=== PATIENT | female | born 1970 | race Caucasian/White ===

== ENCOUNTER → 2022-08-21 10:50 | Outpatient (BNVA) | payer SELFPAY | PROVIDERS: PCP Registered Nurse; Referring Provider Registered Nurse; Visit Provider Dermatology | DX: D48.9 Neoplasm of uncertain behavior, unspecified (principal); Z85.820 Personal history of malignant melanoma of skin; Z85.828 Personal history of other malignant neoplasm of skin; D22.9 Melanocytic nevi, unspecified | CPT/HCPCS: 88305 ==

== ENCOUNTER → 2022-09-04 09:48 | Outpatient (BNVA) | payer SELFPAY | PROVIDERS: PCP Registered Nurse; Visit Provider Registered Nurse | DX: Z13.6 Encounter for screening for cardiovascular disorders (principal) | CPT/HCPCS: 80061; 82947; 83036 ==

== ENCOUNTER → 2022-10-05 10:23 | Outpatient (BNVA) | payer SELFPAY | PROVIDERS: PCP Registered Nurse; Visit Provider Registered Nurse | DX: Z01.419 Encounter for gynecological examination (general) (routine) without abnormal findings (principal); N63.10 Unspecified lump in the right breast, unspecified quadrant; Z12.11 Encounter for screening for malignant neoplasm of colon; Z71.85 Encounter for immunization safety counseling; Z71.3 Dietary counseling and surveillance | CPT/HCPCS: 87070; 87205; 87624 ==

== ENCOUNTER 2022-10-22 10:08 | Outpatient (CLI) | payer SELFPAY ==
--- NOTE | 2022-10-22 10:19 | US_ITS ---
WS: [id number] Exam: US breast BI limited* [id number] Date/Time of Exam: 10/22/2022 10:19 AM Reason For Exam: SHARAD BREAST NODULES Regional ultrasound of the right breast is performed at the 9:00 position. A lobulated hypoechoic solid nodule is noted at the 9:00 position 3 cm from the nipple. This measures 1.17 x 0.6 x 0.47 cm. This corresponds to the nodule identified on today's diagnostic mammogram. The re were no other ultrasound abnormalities within this region. Regional ultrasound of the upper outer quadrant and also the 9:00 position of the left breast was per formed. At the 9:00 position there is a suspicious 0.53 x 0.75 x 0.42 cm lobulated irregular hypoecho ic nodule. The previously described 4 mm nodule seen on mammography in the upper outer quadrant of th e left breast was not definitely seen with ultrasound. US/US breast BI limited* [id number] IMPRESSION: 1. 1.17 x 0.6 x 0.47 cm solid hypoechoic bilobulated nodule in the anterior 9:0 0 position in the right breast. This is an indeterminate lesion and should be b iopsied. 2. Sonographically suspicious 0.53 x 0.75 x 0.42 cm irregular lobulated hypoech oic nodule at the 9:00 position in the left breast that should be biopsied. 3. The previously described suspicious 4 millimeter nodule in the upper outer q uadrant of the left breast could not be localized with ultrasound. This has fly picious mammographic appearance and should also be biopsied.
--- NOTE | 2022-10-22 10:19 | MM_ITS ---
WS: [id number] VIEWS: MLO, CC, and ML views both breasts. 3D digital tomosynthesis is also included in this exam. S pot compression views with tomography also obtained of both breasts in the MLO and CC projections. No comparison exams. Findings: In the right breast there is a bilobulated 1.5 x 0.8 cm nodule identified at the 9:00 position at ant erior depth. This lesion is smoothly marginated. No other significant finding in the right breast. In the left breast there is a 0.8 x 0.5 cm irregular nodule at the 9:00 position in the anterior left b reast. Additionally there is a 4 mm irregular nodular density in the upper outer quadrant of the left breast. No architectural distortion or suspicious calcification in either breast. Bilateral regional breast ultrasound of each lesion would be indicated for further workup of this patient.Scattered fib roglandular densities MM/[place] [id number] Impression: BI-RADS: 0-Incomplete: Need additional imaging evaluation FOLLOW-UP: See Report This mammogram was also analyzed by the Computer Aided Detection System R2 Imag e Sail Finisher Machine.
== END 2022-10-22 10:09 | disposition home or self-care (01) ==
PROVIDERS: PCP Registered Nurse; Visit Provider Registered Nurse
DX: N63.15 Unspecified lump in the right breast, overlapping quadrants (principal); N63.25 Unspecified lump in the left breast, overlapping quadrants
CPT/HCPCS: 76642; 77062; G0279

== ENCOUNTER 2022-11-16 07:42 | Day surgery (SDC) | payer SELFPAY ==
[2022-11-14 10:11] VITALS: BMI 28.1
[2022-11-16 08:08] VITALS: BP 132/85; PULSE 74; RESP 18; TEMP 36.1; O2SAT 94
[2022-11-16] MEDS: sodium chloride 0.9% 1,000 ML 30 ML IV (08:40)
--- NOTE | 2022-11-16 08:44 | P.ANESASSM_ITS ---
Pre-Anesthetic Assessment Height/Weight: Height 1.7 m Weight 81.647 kg Temp Pulse Resp BP Pulse Ox O2 Del Method 97 F L 74 18 132/85 94 Room Air 11/16/22 08:08 11/16/22 08:08 11/16/22 08:08 11/16/22 08:08 11/16/22 08:08 11/16/22 08:08 Operation Date: 11/16/22 09:30 [place] Procedures [place] [id number] screening colonoscopy Z12.11(Not Applicable) - Javi Stewart DO Familial anesthetic complications: mother has hard time waking up Was Beta Alan taken within 24 hours: N/A Was Clonidine taken within 24 hours: N/A Last intake: Intake Last Liquid Date 11/16/22 Last Liquid Time 04:00 Last Solid Date 11/14/22 Last Solid Time 22:00 Social Tobacco and No alcohol Exam alert, oriented x 3, clear to auscultation bilaterally and regular rate & rhythm Airway Mallampati: Class II Dentition: other (missing) Musc/skel malignant melanoma, BCC Anesthetic Plan ASA status: 2 Anesthesia: MAC Risk of > 500 ml blood loss (7ml/kg in children): No Medications/Allergies Home Medications Medication Instructions Recorded Confirmed Last Taken Type aspirin 500 mg-acetaminophen 325 ea PO 11/14/22 Unknown History mg-caffeine 65 mg oral powder pack vismodegib 150 mg capsule 150 mg PO DAILY 11/14/22 11/14/22 11/15/22 History (Erivedge) Allergies Allergy/AdvReac Type Severity Reaction Status Date / Time Morpholine Analogues Allergy Unknown Unknown Verified 11/14/22 10:07 codeine Allergy unk Verified 11/14/22 10:07 [facility] Anesthesia Medical History History of basal cell carcinoma History of malignant melanoma Hypokalemia Surgical History History of tubal ligation Family History Grandfather Cancer paternal skin Father Hypertension Denies family history of Diabetes CAD (coronary artery disease) Chronic kidney disease (CKD) Lung disease Stroke Social History Smoking and tobacco status: current every day smoker cigarettes Packs smoked per day: 1.5 Alcohol intake: never Substance/Drug Use: never Adopted: No Caregiver/support person: No Lives independently: No Household members: significant other service: No Current occupational status: unemployed Sexually active: Yes Current gender identity: Female Data Anesthesia Cardiac Studies: No Data to Display
--- NOTE | 2022-11-16 10:01 | PM.HP ---
Providers/Chief Complaint Primary Care Provider: CHRISTINE Blanton History of Present Illness Tiny Escobedo is a 52 year old female here for her first screening colonoscopy. She denies any family history of colon cancer, abdominal pain, nausea, emesis, diarrhea, constipation, hematochezia and/or melena. Medications/Allergies Home Medications Medication Instructions Recorded Confirmed Last Taken Type aspirin 500 mg-acetaminophen 325 ea PO 11/14/22 Unknown History mg-caffeine 65 mg oral powder pack vismodegib 150 mg capsule 150 mg PO DAILY 11/14/22 11/14/22 11/15/22 History (Erivedge) Allergies Allergy/AdvReac Type Severity Reaction Status Date / Time Morpholine Analogues Allergy Unknown Unknown Verified 11/14/22 10:07 codeine Allergy unk Verified 11/14/22 10:07 PFSH Acute PFSH: Medical History History of basal cell carcinoma History of malignant melanoma Hypokalemia Surgical History History of tubal ligation Family History Grandfather Cancer paternal skin Father Hypertension Denies family history of Diabetes CAD (coronary artery disease) Chronic kidney disease (CKD) Lung disease Stroke Social History Smoking and tobacco status: current every day smoker cigarettes Packs smoked per day: 1.5 Alcohol intake: never Substance/Drug Use: never Adopted: No Caregiver/support person: No Lives independently: No Household members: significant other service: No Current occupational status: unemployed Sexually active: Yes Do you think of yourself as: Straight/Heterosexual Current gender identity: Female Vitals/I&O/Wt Last Vital Signs Temp 97 F L 11/16/22 08:08 Pulse 74 11/16/22 08:08 Resp 18 11/16/22 08:08 BP 132/85 11/16/22 08:08 Pulse Ox 94 11/16/22 08:08 O2 Del Method Room Air 11/16/22 08:08 Weight last 48 hrs Weight 180 lb A&P Assessment and plan (1) Colon cancer screening: Plan Colonoscopy The risks and benefits of the procedure, including bleeding, infection, intestinal perforation requiring surgery, missed lesion were explained to the patient. The patient is understanding of the risks and wishes to proceed. Attestations Medical Necessity Statement*: Home Coding Level of Care Code Acute Code for Chg Fwd Diagnoses Colon cancer screening Z12.11
[2022-11-16 10:15] VITALS: BP 114/81; PULSE 81; RESP 16; TEMP 36.2; O2SAT 93
[2022-11-16 10:29] VITALS: BP 108/72; PULSE 79; RESP 17; O2SAT 97
--- NOTE | 2022-11-16 13:04 | ANE.PACU2 ---
Inpatient post-anesthesia follow up: Airway intact: Yes Vital signs: Temperature 97.2 F Pulse Rate 79 Respiratory Rate 17 Blood Pressure 108/72 Pulse Oximetry 97 Oxygen Delivery Me thod Room Air Oxygen Flow Rate Fraction of Inspir ed Oxygen Hydration adequate: Yes Nausea and vomiting: No Pain level: 1 Mental status: Baseline
== END 2022-11-16 10:40 | disposition home or self-care (01) ==
PROVIDERS: PCP Registered Nurse; Visit Provider Surgery
PROC: 0DJD8ZZ Inspection of Lower Intestinal Tract, Via Natural or Artificial Opening Endoscopic (ICD-10-PCS; CPT 45378; principal; 2022-11-16 09:30)
DX: Z12.11 Encounter for screening for malignant neoplasm of colon (principal); Z79.52 Long term (current) use of systemic steroids; F17.210 Nicotine dependence, cigarettes, uncomplicated; Z79.82 Long term (current) use of aspirin
CPT/HCPCS: 45378; J2704; J7030

== ENCOUNTER 2022-12-06 08:05 | Outpatient (CLI) | payer OTHER, SELFPAY ==
--- NOTE | 2022-12-06 | US_ITS ---
WS: [id number] ULTRASOUND-GUIDED RIGHT BREAST BIOPSY HISTORY: LUMP OF RIGHT BREAST COMPARISON: 10/22/2022 Procedure, risks and complications are explained to the patient. Medications are reviewed. Consent is obtained. The mass in the RIGHT breast is localized with ultrasound. Mass at 9:00, 3 cm from the nipple. Skin i s cleansed with ChloraPrep and anesthetized with 1% buffered lidocaine. Small dermatome is made. Unde r sterile conditions mass is biopsied with a 14-gauge Achieve needle. Multiple core biopsies are perf ormed. Material placed in formalin and sent to pathology for review. No complications encountered. Breast tissue marker (Plum (Formerly Ube) ultrasound enhanced ribbon): Single. Patient left the radiology suite with no complications. Patient is instructed to return to [facility] or [facility] with any concerns. US/[place] [id number] IMPRESSION: 1. Uncomplicated core needle biopsy RIGHT breast mass at 9:00. PATHOLOGY: Benign breast tissue with fibrocystic changes and stromal sclerosis. No malignancy. RECOMMENDATION: 6 month diagnostic mammogram follow-up and ultrasound.
--- NOTE | 2022-12-06 08:45 | US_ITS ---
WS: [id number] ULTRASOUND-GUIDED LEFT BREAST BIOPSY HISTORY: LEFT breast mass 9:00. COMPARISON: 10/22/2022 Procedure, risks and complications are explained to the patient. Medications are reviewed. Consent is obtained. The mass in the LEFT breast is localized with ultrasound. Mass localizes 9:00, 3 cm from the nipple. Skin is cleansed with ChloraPrep and anesthetized with 1% buffered lidocaine. Small dermatome is made . Under sterile conditions mass is biopsied with a 14-gauge Achieve needle. Multiple core biopsies ar e performed. Material placed in formalin and sent to pathology for review. No complications encounter ed. Breast tissue marker (Class Messenger ultrasound enhanced ribbon): Single. Patient left the radiology suite with no complications. Patient is instructed to return to [facility] or [facility] with any concerns. US/[place] [id number] IMPRESSION: 1. Uncomplicated core needle biopsy LEFT breast mass at 9:00. PATHOLOGY: Benign breast tissue with fibroadenomatoid changes. No malignancy. RECOMMENDATION: Diagnostic LEFT mammogram 6 months and possible ultrasound foll ow-up.
== END 2022-12-06 08:06 | disposition home or self-care (01) ==
LOC: RAD 08:09
PROVIDERS: PCP Registered Nurse; Visit Provider Registered Nurse
DX: N63.11 Unspecified lump in the right breast, upper outer quadrant (principal); N63.12 Unspecified lump in the right breast, upper inner quadrant
CPT/HCPCS: 19083; 88305

== ENCOUNTER 2023-08-13 08:57 | Outpatient (CLI) | payer OTHER, SELFPAY ==
--- NOTE | 2023-08-13 09:04 | MM_ITS ---
WS: [id number] DIAGNOSTIC BILATERAL DIGITAL BREAST TOMOSYNTHESIS MAMMOGRAPHY WITH CAD Bilateral breast ultrasound, limited HISTORY: 6MFU POST BX, bilateral breast biopsy follow-up. COMPARISON: 12/06/2022, 10/22/2022 TECHNIQUE: Bilateral craniocaudad, mediolateral oblique, and mediolateral views are submitted with to mosynthesis and SM. Spot compression bilateral CC and MLO. Computer aided detection utilized. Breast composition: There are scattered areas of fibroglandular density. Previously biopsied masses w ithin each breast are reidentified. Each mass contains a biopsy clip. The largest mass is slightly tu bular in the RIGHT breast towards 9:00 measuring 9 mm. There is a smaller mass with biopsy clip in th e LEFT breast near 9:00. Bilateral breast ultrasound, limited. LEFT breast: Reidentified is the hypoechoic mass at 9:00, 3 cm from the nipple with a biopsy clip. Ma ss measures 8 x 7 x 9 mm. Mass has not significantly changed in size but the margins are slightly lob ulated. No increased vascularity. RIGHT breast: Ovoid hypoechoic mass is reidentified with biopsy clip measuring 11 x 4 x 6 mm. IMPRESSION: MM/[place] [id number] BI-RADS: 3-Probably Benign FOLLOW UP: See Report 1. No significant change in size of the previously biopsied masses within each breast. Both of these masses contain biopsy clips indicating satisfactory posi tion of the biopsies. 2. Suspicious features involving the LEFT breast mass despite negative biopsy. Suggest surgical consultation for possible resection of this mass. Alternative ly 6-month LEFT breast ultrasound can be performed. As this mass has already be en biopsied and some of the features remain suspicious consider surgical excisi on.
== END 2023-08-13 08:58 | disposition home or self-care (01) ==
LOC: RAD 08:57
PROVIDERS: PCP Registered Nurse; Visit Provider Registered Nurse
DX: R92.8 Other abnormal and inconclusive findings on diagnostic imaging of breast (principal)
CPT/HCPCS: 76642; 77062; G0279

== ENCOUNTER 2023-12-30 08:03 | Outpatient (CLI) | payer OTHER, SELFPAY ==
--- NOTE | 2023-12-30 08:08 | MM_ITS ---
WS: [id number] DIAGNOSTIC BILATERAL DIGITAL BREAST TOMOSYNTHESIS MAMMOGRAPHY WITH CAD Bilateral breast ultrasound, limited HISTORY: ABNORMAL MAMMO COMPARISON: 08/13/2023, 10/22/2022, 08/13/2023 ultrasound TECHNIQUE: Bilateral craniocaudad, mediolateral oblique, and mediolateral views are submitted with to moscrispin and SM. Bilateral CC spot compression and RIGHT MLO spot compression computer aided detec tion utilized. Breast composition: There are scattered areas of fibroglandular density. Biopsy clip in the RIGHT jodee ast is reidentified adjacent to a lobulated 9 mm mass which is unchanged. Additional biopsy clip in t he medial LEFT breast near 9:00 is also unchanged. Area of pain towards the RIGHT axilla demonstrates no underlying mass. There are no new masses or calcifications. Bilateral breast ultrasound, limited. RIGHT breast: Ultrasound in the area of pain demonstrates no abnormality. LEFT breast: At 9:00, 3 cm from the nipple is a hypoechoic irregular mass which was previously biopsi ed measuring 3 x 3 x 3 mm. There has been no increase in size. MM/[place] [id number] IMPRESSION: BI-RADS: 2-Benign FOLLOW UP: 1 Year Follow-up Return to annual screening mammography. There has been no change in size in the previously biopsied hypoechoic mass in the LEFT breast at 9:00. No abnormality in the RIGHT axilla at the area of pain.
== END 2023-12-30 08:04 | disposition home or self-care (01) ==
LOC: RAD 08:04
PROVIDERS: PCP Registered Nurse; Visit Provider Advanced Practice Midwife
DX: R92.8 Other abnormal and inconclusive findings on diagnostic imaging of breast (principal); R92.323 Mammographic fibroglandular density, bilateral breasts; N63.10 Unspecified lump in the right breast, unspecified quadrant
CPT/HCPCS: 76642; 77062; G0279

== ENCOUNTER → 2024-02-11 11:14 | Outpatient (BNVA) | payer SELFPAY | PROVIDERS: PCP Registered Nurse; Visit Provider Registered Nurse | DX: M62.838 Other muscle spasm (principal); Z85.820 Personal history of malignant melanoma of skin; N39.0 Urinary tract infection, site not specified; F17.210 Nicotine dependence, cigarettes, uncomplicated; R39.9 Unspecified symptoms and signs involving the genitourinary system | CPT/HCPCS: 80053; 81000; 85025; 87086 ==

== ENCOUNTER 2024-04-17 23:05 | Emergency (ER) | payer SELFPAY ==
--- NOTE | 2024-04-17 23:07 | XRR_ITS ---
PROCEDURE INFORMATION: Exam: XR Chest Exam date and time: 04/17/2024 11:32 PM Age: 53 years old Clinical indication: Patient HX: EMS arrival for possible CVA. TECHNIQUE: Imaging protocol: Radiologic exam of the chest. Views: 1 view. COMPARISON: No relevant prior studies available. FINDINGS: Lungs: No consolidation, mass, or pulmonary edema. Pleural spaces: No pneumothorax or pleural effusion. Heart/Mediastinum: Cardiomediastinal silhouette is within normal limits. Bones/joints: No acute osseous abnormality. XR/XR chest 1V portable [id number] IMPRESSION: No acute findings.
--- NOTE | 2024-04-17 23:07 | CTR_ITS ---
PROCEDURE INFORMATION: Exam: CT Head Without Contrast Exam date and time: 04/17/2024 11:07 PM Age: 53 years old Clinical indication: Stroke-like symptoms; Speech disturbance; Lt upper extremity and RT lower extremity weakness; Additional info: Symptoms of acute stroke TECHNIQUE: Imaging protocol: Computed tomography of the head without contrast. Radiation optimization: All CT scans at this facility use at least one of these dose optimization techniques: automated exposure control; mA and/or kV adjustment per patient size (includes targeted exams where dose is matched to clinical indication); or iterative reconstruction. Other technique: STROKE PROTOCOL was implemented. COMPARISON: No relevant prior studies available. RADIATION DOSE METRICS: Total DLP (mGy-cm): 981 FINDINGS: Brain: No acute intracranial hemorrhage, acute large territory infarct, or obvious mass lesion. No significant white matter disease. No midline shift or mass effect. Cerebral ventricles: No ventriculomegaly. Paranasal sinuses: Visualized paranasal sinuses are clear. Mastoid air cells: Visualized mastoid air cells are well-aerated. Bones: No acute osseous abnormality. Soft tissues: Unremarkable. Other findings: No visible contraindication to MRI on this exam. CT/CT head thrombolytic [id number] IMPRESSION: No acute intracranial abnormality. ASSESSMENT: ASPECTS ([place] Stroke Program Early CT Score) is 10.
[2024-04-17 23:11] VITALS: BP 163/56; PULSE 87; RESP 18; TEMP 36.8; O2SAT 94; BMI 30.4
[2024-04-17 23:21] LABS: Glucose Point of Care 120 mg/dL (70-110)
--- NOTE | 2024-04-17 23:23 | ED_ITS ---
HPI - Neuro Symptoms/Deficit 2 General: Chief Complaint: Neuro Symptoms/Deficit Stated Complaint: STROKE ALERT Time Seen by Provider: 04/17/24 23:07 Source: patient and EMS Mode of arrival: EMS Limitations: no limitations History of Present Illness: 53-year-old female who had called EMS to night originally because she is having some chest pain that started around 9 she states that time to she felt like she is having some slurred speech she had numbness in her right face numbness in her left arm and numbness in her right foot she states everything is resolved she no longer has any chest pain her speech here is clear she denies any numbness or weakness. Denies any headaches. Associated symptoms: Reports chest pain; Deny headache(s), nausea or vomiting Related Data Allergies Allergy/AdvReac Type Severity Reaction Status Date / Time Morpholine Analogues Allergy Unknown Unknown Verified 05/21/23 14:21 codeine Allergy unk Verified 05/21/23 14:21 Review of Systems 2 Const: Denies: fever(s), chills, body aches or change in appetite ENMT: Denies: throat pain or dental pain Card: Reports: chest pain Resp: Denies: dyspnea GI: Denies: abdominal pain, nausea, vomiting or diarrhea Musc: Denies: neck pain or back pain Skin/Breast: Denies: rash Neuro: Reports: confusion and Slurred speech present; Denies: headache(s) PFSH ED 2 PFSH: Medical History Hypokalemia History of basal cell carcinoma History of malignant melanoma Surgical History History of tubal ligation Family History Grandfather Cancer paternal skin Father Hypertension Denies family history of Diabetes CAD (coronary artery disease) Chronic kidney disease (CKD) Lung disease Stroke Social History Smoking and tobacco/nicotine status: never used tobacco/nicotine Alcohol intake: never Substance/Drug Use: never Adopted: No Caregiver/support person: No Lives independently: No Household members: significant other service: No Current occupational status: unemployed Sexually active: Yes Do you think of yourself as: Straight/Heterosexual Current gender identity: Female NIH stroke score 2 NIHSS: Level Of Consciousness - 1a: 0 Level Of Consciousness Questions - 1b: Both Correct Level Of Consciousness Commands - 1c: Both Correct Best Gaze - 2: Normal Visual Suazo - 3: No Visual Loss Facial Palsy - 4: N ormal Motor Arm Right - 5: No Drift Motor Arm Left - 5: No Drift Motor Leg Right - 6: No Drift Motor Leg Left - 6: No Drift Limb Ataxia - 7: A bsent Sensory - 8: Normal Best Language - 9: No Aphasia Dysarthia - 10: Normal Extinction And Inattention - 11: 0 Score: Total Score: 0 Physical Exam 2 Const: COMMON NORMALS: no acute distress, patient oriented x3 and healthy appearing HENMT: COMMON NORMALS: normocephalic and atraumatic HEAD & SCALP: n ormocephalic and atraumatic Eye: COMMON NORMALS: Equal, round and reactive pupils present and EOMs intact bilaterally PUPIL: Yes Equal, round and reactive pupils present Neck/C-Spine: COMMON NORMALS: full ROM and supple Chest: COMMONS NORMALS: normal inspection of the chest and normal palpation of entire chest wall Resp: COMMON NORMALS: normal respiratory effort, No retractions, No use of accessory muscles and clear to auscultation bilaterally AUSCULTATION: clear to auscultation bilaterally Cardio: COMMON NORMALS: regular rate, regular rhythm and No murmurs present (Cardio) RATE: regular rate RHYTHM: regular rhythm GI: COMMON NORMALS: Normal to inspection, nondistended, normoactive bowel sounds present, Soft to palpation, non-tender and no masses PALPATION: Yes Soft to palpation Extremity: COMMON NORMALS: normal to inspection and full ROM Neuro: COMMON NORMALS: patient oriented x3, moves all extremities and no focal motor deficits SPEECH: speech normal GAIT: Yes Normal gait present M OTOR EXAM: 5/5 motor strength present throughout Psych: COMMON NORMALS: mental status grossly normal, Normal thought process present and cooperative THOUGHT PROCESS: Normal thought process present Skin: COMMON NORMALS: no rashes or lesions noted and no wounds GENERAL SKIN EXAM: no rashes or lesions noted Course 2 Vital Signs: Vital signs: Vital Signs Temperature 98.2 F 04/17/24 23:11 Pulse Rate 87 04/18/24 00:05 Respiratory Rate 16 04/18/24 00:05 Blood Pressure 161/94 04/18/24 00:05 Pulse Oximetry 94 04/18/24 00:05 Oxygen Delivery Me thod Room Air 04/18/24 00:05 MDM - Neuro Symptoms/Deficit Medical Decision Making Patient. Chest pain since resolved troponin here is negative no signs of ACS she had some numbness and possible slurred speech she had no slurred speech. She states she feels at her baseline wants to go home head CT is normal she has no signs of a stroke possible TIA she is follow-up with PCP she is return if worsening she understands agrees plan. Medical Records I reviewed the patient's medical records. Lab Data I reviewed the patient's lab results. 04/17/24 23:13 04/17/24 23:13 Radiology Impressions Chest X-Ray 04/17/24 23:07 IMPRESSION: No acute findings. Head CT 04/17/24 23:07 IMPRESSION: No acute intracranial abnormality. ASSESSMENT: ASPECTS ([place] Stroke Program Early CT Score) is 10. Laboratory Results WBC 10.43 10^3/uL (3.29-11.43) 04/17/24 23:13 RBC 4.92 10^6/uL (3.85-5.65) 04/17/24 23:13 Hgb 15.80 g/dL (11.27-16.99) 04/17/24 23:13 Hct 45.9 % (36-47) 04/17/24 23:13 MCV 93.3 fl (85-98) 04/17/24 23:13 MCH 32.1 pg (27-33) 04/17/24 23:13 MCHC 34.4 g/dL (30-55) 04/17/24 23:13 RDW 12.7 % (12.1-15.1) 04/17/24 23:13 Plt Count 292 10^3/cmm (157-399) 04/17/24 23:13 MPV 10.0 fL (7.4-10.4) 04/17/24 23:13 Neut % (Auto) 56.7 % 04/17/24 23:13 Lymph % (Auto) 35.3 % 04/17/24 23:13 [place] % (Auto) 6.2 % 04/17/24 23:13 Eos % (Auto) 0.9 % 04/17/24 23:13 Baso % (Auto) 0.7 % 04/17/24 23:13 Neut # (Auto) 5.92 10^3/uL (1.8-7.7) 04/17/24 23:13 Lymph # (Auto) 3.7 10^3/uL (0.8-4.8) 04/17/24 23:13 [place] # (Auto) 0.7 10^3/uL (0.2-0.9) 04/17/24 23:13 Eos # (Auto) 0.1 10^3/uL (0.0-0.8) 04/17/24 23:13 Baso # (Auto) 0.1 10^3/uL (0.0-0.1) 04/17/24 23:13 Nucleated RBC % (auto) 0 % 04/17/24 23:13 Nucleated RBCs # 0.0 /100WBC 04/17/24 23:13 PT 13.00 SECONDS (12.1-14.9) 04/17/24 23:13 INR 0.95 (0.8-1.2) 04/17/24 23:13 APTT 25.5 SECONDS (23.9-36.7) 04/17/24 23:13 Sodium 141 mmol/L (136-145) 04/17/24 23:13 Potassium 4.3 mmol/L (3.5-5.1) 04/17/24 23:13 Chloride 103 mmol/L (98-107) 04/17/24 23:13 Carbon Dioxide 25 mmol/L (22-29) 04/17/24 23:13 Anion Gap 17.3 (5-19) 04/17/24 23:13 BUN 13 mg/dL (6-20) 04/17/24 23:13 Creatinine 0.8 mg/dL (0.5-0.9) 04/17/24 23:13 GFR Calculation 75.6 mL/min (90-130) L 04/17/24 23:13 Glucose 112 mg/dL (65-115) 04/17/24 23:13 POC Glucose 120 mg/dL (70-110) H 04/17/24 23:08 Calculated Osmolality 293 mOsm/kg (285-295) 04/17/24 23:13 Calcium 10.0 mg/dL (8.5-10.5) 04/17/24 23:13 Total Bilirubin 0.6 mg/dL (0.15-1.2) 04/17/24 23:13 AST 84 U/L (0-32) H 04/17/24 23:13 ALT 81 U/L (0-33) H 04/17/24 23:13 Alkaline Phosphatase 89 U/L (35-105) 04/17/24 23:13 Troponin T Baseline < 6 ng/L (0-10) 04/17/24 23:13 Total Protein 6.8 g/dL (6.6-8.7) 04/17/24 23:13 Albumin 4.6 g/dL (3.5-5.2) 04/17/24 23:13 Globulin 2.2 g/dL (1.3-4.6) 04/17/24 23:13 All radiology interpretation(s) finalized by discharge Discharge Plan Discharge Patient Disposition: Home Clinical Impression: Chest pain, Brain TIA Condition: Stable Discharge Orders: Discharge ED (Routine); Ordered 04/18/24 Ordered By: Kevin Victoria Referrals: Nadia Hameed FNP [Primary Care Provider] - 4-7 days Discharge Diet: Advance as tolerated Discharge Activity: Resume usual activity Patient Instructions: Transient Ischemic Attack (ED), Chest Pain (ED) Coding Level of Care Code ED Back Roll Lathe Operator for Jarrod Perales
[2024-04-17 23:34] LABS: Basophils # 0.1 10^3/uL (0.0-0.1); Basophils % 0.7 %; Eosinophils # 0.1 10^3/uL (0.0-0.8); Eosinophils % 0.9 %; Hematocrit 45.9 % (36-47); Lymphocytes # 3.7 10^3/uL (0.8-4.8); Lymphocytes % 35.3 %; Mean Corpuscular HGB Conc 34.4 g/dL (30-55); Mean Corpuscular Hemoglobin 32.1 pg (27-33); Mean Corpuscular Volume 93.3 fl (85-98); Monocytes # 0.7 10^3/uL (0.2-0.9); Monocytes % 6.2 %; Neutrophils # 5.92 10^3/uL (1.8-7.7); Neutrophils % 56.7 %; Nucleated Red Blood Cells % 0 %; Platelet Count 292 10^3/cmm (157-399); Red Blood Count 4.92 10^6/uL (3.85-5.65); Red Cell Distribution Width 12.7 % (12.1-15.1); White Blood Count 10.43 10^3/uL (3.29-11.43)
[2024-04-17 23:47] LABS: INR 0.95 (0.8-1.2)
[2024-04-17 23:48] LABS: Partial Thromboplastin Time 25.5 SECONDS (23.9-36.7)
[2024-04-17 23:52] LABS: Troponin(5th) Baseline < 6 ng/L (0-10)
[2024-04-17 23:53] LABS: Alanine Aminotransferase 81 U/L (0-33); Albumin Level 4.6 g/dL (3.5-5.2); Alkaline Phosphatase 89 U/L (35-105); Anion Gap 17.3 (5-19); Aspartate Amino Transferase 84 U/L (0-32); Blood Urea Nitrogen 13 mg/dL (6-20); Carbon Dioxide 25 mmol/L (22-29); Chloride 103 mmol/L (98-107); Creatinine Clr Calc Pharmacy 94.7711; Globulin 2.2 g/dL (1.3-4.6); Glomerular Filtration Rate 75.6 mL/min (90-130); Glucose 112 mg/dL (65-115); Osmolality Calculated 293 mOsm/kg (285-295); Potassium 4.3 mmol/L (3.5-5.1); Sodium 141 mmol/L (136-145); Total Bilirubin 0.6 mg/dL (0.15-1.2); Total Protein 6.8 g/dL (6.6-8.7)
[2024-04-18 00:05] VITALS: BP 161/94; BP 166/75; PULSE 87; RESP 16; O2SAT 94
[2024-04-18 00:49] VITALS: BP 160/90; PULSE 100; RESP 18; O2SAT 94
[2024-04-18 01:06] LABS: Troponin 5 2HR Delta 0.00001 ABS# (0-10)
== END 2024-04-18 00:50 | disposition home or self-care (01) ==
PROVIDERS: Emergency Provider Emergency Medicine; PCP Registered Nurse
DX: R07.9 Chest pain, unspecified (principal); G45.9 Transient cerebral ischemic attack, unspecified
CPT/HCPCS: 36415; 36416; 70450; 71045; 80053; 82962; 84484; 85025; 85610; 85730; 99285

== ENCOUNTER → 2024-05-14 11:40 | Outpatient (BNVA) | payer SELFPAY | PROVIDERS: PCP Registered Nurse; Visit Provider Registered Nurse | DX: R74.01 Elevation of levels of liver transaminase levels (principal) | CPT/HCPCS: 80053 ==

== ENCOUNTER → 2024-11-13 08:12 | Outpatient (BNVA) | payer MEDICAID, SELFPAY | PROVIDERS: PCP Registered Nurse; Visit Provider Registered Nurse | DX: R74.8 Abnormal levels of other serum enzymes (principal) | CPT/HCPCS: 80053 ==

== ENCOUNTER 2025-01-07 13:33 | Outpatient (CLI) | payer MEDICAID, SELFPAY ==
--- NOTE | 2025-01-07 13:37 | MM_ITS ---
WS: [id number] BILATERAL 3D TOMOSYNTHESIS DIGITAL DIAGNOSTIC MAMMOGRAPHY WITH CAD CLINICAL INFORMATION: BREAST PAIN HISTORY: RIGHT breast pain. COMPARISON: 12/30/2023 TECHNIQUE: Bilateral CC, MLO, and ML views. FINDINGS: Scattered fibroglandular densities bilaterally. Stable biopsy clip in the RIGHT breast adjacent to the 9 mm nodule unchanged. Marker along the RIGHT axillary tail. No underlying suspicious mammographic abnormalities in this area. Additional biopsy clip in the medial LEFT breast near 9:00 is also unchanged with stable small 3 mm nodule. No new or suspicious findings. Ultrasound described below. ULTRASOUND BREAST BILATERAL TECHNIQUE: Ultrasound bilateral breast focused area of concern. CLINICAL INFORMATION: BREAST PAIN FINDINGS: RIGHT BREAST: RIGHT breast nodule with biopsy clip is stable in appearance at the 9 o'clock position 3 cm from the nipple. LEFT BREAST: 9 o'clock position 3 cm from the nipple is the previously biopsied hypoechoic nodule measuring 3 x 3 mm which is also stable in appearance. No new suspicious findings. Recommend return to annual screening mammography. MM/MM diag tomosynthesis [id number] IMPRESSION: DENSITY: There are scattered areas of fibroglandular density. BI-RADS: 2 - Benign. FOLLOW UP: 1 Year Follow-up Recommend return to annual screening mammography.
== END 2025-01-07 13:34 | disposition home or self-care (01) ==
LOC: RAD 13:34
PROVIDERS: PCP Registered Nurse; Visit Provider Advanced Practice Midwife
DX: N64.4 Mastodynia (principal); R92.323 Mammographic fibroglandular density, bilateral breasts; N63.25 Unspecified lump in the left breast, overlapping quadrants
CPT/HCPCS: 76642; 77062; G0279

== ENCOUNTER 2025-01-13 09:42 | Outpatient (CLI) | payer MEDICAID, SELFPAY ==
--- NOTE | 2025-01-13 09:45 | US_ITS ---
WS: [id number] ULTRASOUND SOFT TISSUES RIGHT upper thorax adjacent to the clavicle. HISTORY: Palpable nodule. COMPARISON: None available. TECHNIQUE: 2-D and color Doppler imaging is submitted. Ultrasound is directed along the medial RIGHT clavicle at the site of the palpable nodule. There is no mass in the soft tissues. No distortion or fatty tumor. No cystic mass. Incidental note is made of a 6 mm benign-appearing hypoechoic nodule in the RIGHT thyroid. US/US soft tissue head neck [id number] IMPRESSION: No soft tissue mass adjacent to the RIGHT clavicle.
== END 2025-01-13 09:43 | disposition home or self-care (01) ==
LOC: RAD 09:44
PROVIDERS: PCP Registered Nurse; Visit Provider Registered Nurse
DX: M89.8X1 Other specified disorders of bone, shoulder (principal); E04.1 Nontoxic single thyroid nodule
CPT/HCPCS: 76536

== ENCOUNTER 2025-02-02 13:11 | Outpatient (CLI) | payer MEDICAID, SELFPAY ==
--- NOTE | 2025-02-02 13:30 | USR_ITS ---
PROCEDURE INFORMATION: Exam: US Soft Tissue Head and Neck, Thyroid Exam date and time: 02/02/2025 1:38 PM Age: 54 years old Clinical indication: Condition or disease; Thyroid disorder; Other: Thyroid nodule; Additional info: E04.1 - nontoxic single thyroid nodule, thyroid nodule 6mm TECHNIQUE: Imaging protocol: Real-time ultrasound scan of the neck with image documentation. Exam focused on the thyroid. COMPARISON: US soft tissue head neck [id number] 01/13/2025 9:58 AM FINDINGS: Right thyroid lobe: No nodules. Left thyroid lobe: No nodules. Isthmus: No suspicious nodules. Tiny benign 3 x 3 x 5 mm cystic nodule. TR 1. US/US thyroid [id number] IMPRESSION: 1. No suspicious nodules. 2. Tiny benign 3 x 3 x 5 mm cystic nodule.
== END 2025-02-02 13:12 | disposition home or self-care (01) ==
LOC: RAD 13:12
PROVIDERS: PCP Registered Nurse; Visit Provider Registered Nurse
DX: E04.1 Nontoxic single thyroid nodule (principal)
CPT/HCPCS: 76536

== ENCOUNTER → 2025-02-22 14:37 | Outpatient (BNVA) | payer MEDICAID, SELFPAY | PROVIDERS: PCP Registered Nurse; Visit Provider Registered Nurse | DX: E07.9 Disorder of thyroid, unspecified (principal) | CPT/HCPCS: 84443 ==